=== PATIENT | female | born 1985 ===

== ENCOUNTER 2018-08-28 21:40 | Outpatient (REF) | payer BC, SELFPAY ==
[2018-08-29 00:49] LABS: Abs Immature Grans 0.01 k/cumm (0.0-0.09); Absolute Basophil Count 0.02 k/cumm (0.0-0.2); Absolute Eosinophil Count 0.07 k/cumm (0.0-0.7); Absolute Lymphocyte Count 2.41 k/cumm (1.2-3.4); Absolute Monocyte Count 0.56 k/cumm (0.11-0.7); Absolute Neutrophil Count 5.44 k/cumm (1.2-6.7); Basophils % 0.2; Eosinophils % 0.8; HGB 16.7 g/dL (12.0-15.5); Immature Grans % 0.1; Lymphocytes % 28.3; Mean Corp. HGB Concentration 34.8 g/dL (32.0-36.0); Mean Corpuscular Hemoglobin 32.4 pg (27.0-33.0); Mean Corpuscular Volume 93.2 fL (80-95); Mean Platelet Volume 12.8 fL (8.0-11.0); Monocytes % 6.6; Platelet Count 195 x1000/uL (130-400); RBC 5.15 m/cumm (4.00-5.20); RBC Distribution Width 13.1 % (11.7-14.6); White Blood Cell Count 8.51 k/cumm (4.4-10.8)
[2018-08-29 01:05] LABS: Creatine Kinase 78 U/L (26-192); TSH 2.11 uIU/mL (0.358-3.74)
[2018-08-29 04:00] LABS: ESR 2 MM/HR (0-20)
== END 2018-08-28 22:00 ==
LOC: NCHCN 21:40
PROVIDERS: PCP Internal Medicine; Visit Provider Internal Medicine
DX: R53.83 Other fatigue (principal); M54.2 Cervicalgia; M79.10 Myalgia, unspecified site
CPT/HCPCS: 82550; 85652; 84443; 85025; 86140

== ENCOUNTER 2018-09-04 05:08 | Outpatient (REF) | payer BC, SELFPAY ==
[2018-09-05 00:44] LABS: HCT 46.4 % (36.0-46.0); HGB 15.9 g/dL (12.0-15.5); Mean Corp. HGB Concentration 34.3 g/dL (32.0-36.0); Mean Corpuscular Volume 93.4 fL (80-95); Mean Platelet Volume 13.4 fL (8.0-11.0); Platelet Count 175 x1000/uL (130-400); RBC 4.97 m/cumm (4.00-5.20); RBC Distribution Width 12.7 % (11.7-14.6); White Blood Cell Count 9.32 k/cumm (4.4-10.8)
[2018-09-05 00:49] LABS: ALT 17 U/L (12-78); AST 14 U/L (15-37); Albumin 4.3 g/dL (3.4-5.0); Alkaline Phosphatase 64 U/L (46-116); Anion Gap 10.5 mmol/L (3-11); BUN 8 mg/dL (7-18); Bilirubin, Total 0.6 mg/dL (0.2-1.0); CO2 25.5 mmol/L (21.0-32.0); CREATININE 0.83 mg/dL (0.55-1.02); Calcium 9.1 mg/dL (8.5-10.1); Chloride 107 mmol/L (98-107); Glucose 88 mg/dL (70-100); Potassium 4.3 mmol/L (3.5-5.1); Sodium 143 mmol/L (136-145)
== END 2018-09-04 05:28 ==
LOC: NCHCN 05:08
PROVIDERS: PCP Internal Medicine; Visit Provider Internal Medicine
DX: R78.89 Finding of other specified substances, not normally found in blood (principal)
CPT/HCPCS: 80053; 85027